=== PATIENT | male | born 1950 | race Caucasian/White ===

== ENCOUNTER 2019-07-31 07:27 | Emergency (ER) | payer OTHER ==
[~2019-07-31] VITALS: Ht 188 cm; Wt 117.9 kg
[2019-07-31] MEDS ORDERED: NORVASC10 MG PO (07:38)
[2019-07-31] MEDS ORDERED: LOSARTAN-HCTZ1 EAC1 PO (07:38)
== END 2019-07-31 15:23 | disposition home or self-care (01) ==
LOC: ER 07:27 → CPU-OBS 07:42 → ER 07:42
DX: R42 Dizziness and giddiness (principal); Z95.0 Presence of cardiac pacemaker
CPT/HCPCS: G0378; G0379; 70450; 93005